=== PATIENT | male | born 1945 | race Caucasian/White ===

== ENCOUNTER 2016-10-31 07:10 | Day surgery (SDC) | payer OTHER ==
[2016-10-30 14:53] VITALS: BMI 29.7
[2016-10-31 08:36] VITALS: TEMP 97.7
[2016-10-31 10:02] VITALS: BP 124/76; PULSE 63
--- NOTE | 2016-11-03 10:07 | PATH ---
Surgical Pathology Report Patient Name: JOSELITO LOUIE [facility]. Rec. #: [id number] /Age/Gender: 1945 (Age: 71) / M Account: [id number] Location: U-ENDOSCOPY Taken: 10/31/2016 Received: 10/31/2016 Reported: 11/03/2016 Physicians: Geoffrey Solorzano M.D. Specimen(s) Received A: CECAL POLYP B: PROXIMAL TRANSVERSE COLON POLYP Clinical History Adenoma surveillance Colon polyps (cecum and proximal transverse colon) Final Diagnosis A. COLON, CECUM, HOT SNARE POLYPECTOMY: TUBULAR ADENOMA. B. COLON, PROXIMAL TRANSVERSE, HOT SNARE POLYPECTOMY: TUBULAR ADENOMA. Comment: Recommend correlation with clinical findings and follow up as clinically indicated. Electronically Signed Alvin Ribeiro M.D. Gross Description A. Received in formalin, labeled "cecal polyp" are 2 kerr, irregular portions of soft tissue averaging 0.2 cm. in greatest dimension. The specimens are submitted in toto in one cassette. B. Received in formalin, labeled "proximal transverse colon polyp" are 2 kerr, irregular portions of soft tissue measuring 0.2 and 0.3 cm. in greatest dimension. The specimens are submitted in toto in one cassette. 10/31/201610/31/2016
== END 2016-10-31 09:30 | disposition home or self-care (01) ==
LOC: JASU-ENDO 07:10
PROVIDERS: ATTEND Internal Medicine Gastroenterology
PROC: 0DBL8ZX Excision of Transverse Colon, Via Natural or Artificial Opening Endoscopic, Diagnostic (ICD-10-PCS; 2016-10-31)
PROC: 0DBH8ZX Excision of Cecum, Via Natural or Artificial Opening Endoscopic, Diagnostic (ICD-10-PCS; principal; 2016-10-31 08:00)
DX: Z12.11 Encounter for screening for malignant neoplasm of colon (principal); Z86.010 Personal history of colon polyps; D12.0 Benign neoplasm of cecum; D12.3 Benign neoplasm of transverse colon; K57.30 Diverticulosis of large intestine without perforation or abscess without bleeding; K64.8 Other hemorrhoids
CPT/HCPCS: 88305-TC

== ENCOUNTER 2024-12-02 06:14 | Day surgery (SDC) | payer OTHER ==
[2024-12-01 11:46] VITALS: BMI 27.7
[2024-12-02 12:03] VITALS: TEMP 97.3
[2024-12-02 12:12] VITALS: BP 106/44; PULSE 63; RESP 22
== END 2024-12-02 12:19 | disposition home or self-care (01) ==
LOC: JASU-ENDO 06:14
PROVIDERS: ATTEND Internal Medicine Gastroenterology
PROC: 0DB98ZX Excision of Duodenum, Via Natural or Artificial Opening Endoscopic, Diagnostic (ICD-10-PCS; 2024-12-02)
PROC: 0DB78ZX Excision of Stomach, Pylorus, Via Natural or Artificial Opening Endoscopic, Diagnostic (ICD-10-PCS; 2024-12-02)
PROC: 0DB68ZX Excision of Stomach, Via Natural or Artificial Opening Endoscopic, Diagnostic (ICD-10-PCS; 2024-12-02)
PROC: 0DB28ZX Excision of Middle Esophagus, Via Natural or Artificial Opening Endoscopic, Diagnostic (ICD-10-PCS; 2024-12-02)
PROC: 0DB38ZX Excision of Lower Esophagus, Via Natural or Artificial Opening Endoscopic, Diagnostic (ICD-10-PCS; 2024-12-02)
PROC: 0DBP8ZX Excision of Rectum, Via Natural or Artificial Opening Endoscopic, Diagnostic (ICD-10-PCS; principal; 2024-12-02 11:00)
DX: Z12.11 Encounter for screening for malignant neoplasm of colon (principal); D12.8 Benign neoplasm of rectum; K64.8 Other hemorrhoids; K57.30 Diverticulosis of large intestine without perforation or abscess without bleeding; K29.80 Duodenitis without bleeding; K29.50 Unspecified chronic gastritis without bleeding; K21.00 Gastro-esophageal reflux disease with esophagitis, without bleeding; Z86.0100 Personal history of colon polyps, unspecified
CPT/HCPCS: 88305-TC; 88342-TC